=== PATIENT | female | born 1970 | race Caucasian/White ===

== ENCOUNTER 2018-03-11 22:43 | Emergency (ER) | payer SELFPAY ==
[2018-03-11 23:40] LABS: Basophils # (Auto) 0.1 K/mm3 (0.0-0.1); Basophils % (Auto) 0.9 % (0.0-1.8); Hematocrit 37.8 % (30.3-42.9); Hemoglobin 12.9 gm/dl (10.1-14.3); Lymphocytes # (Auto) 3.7 K/mm3 (1.2-5.4); Lymphocytes % (Auto) 41.4 % (13.4-35.0); Mean Corpuscular HGB Conc 34 % (30-34); Mean Corpuscular Hemoglobin 28 pg (28-32); Mean Corpuscular Volume 82 fl (79-97); Monocytes # (Auto) 0.4 K/mm3 (0.0-0.8); Monocytes % (Auto) 4.5 % (0.0-7.3); Platelet Count 312 K/mm3 (140-440); Red Blood Count 4.64 M/mm3 (3.65-5.03); Red Cell Distribution Width 14.1 % (13.2-15.2)
[2018-03-11 23:55] LABS: BUN/Creatinine Ratio 13; Blood Urea Nitrogen 8 mg/dL (7-17); Calcium 9.7 mg/dL (8.4-10.2); Hemolysis Index 9
--- NOTE | 2018-03-12 01:13 | Emergency Department Report ---
HPI - General Chief Complaint: Abdominal Pain Time Seen by Provider: 03/12/18 00:22 - HPI HPI: 47-year-old female presents to the emergency department from home, with her daughter at bedside translating to her mi'kmaq Greek language, with the complaint of a one-month history of abdominal pain and some chest pain with radiation towards the back. The abdominal pain she describes as feeling as if there is a ball growing inside of her that is getting progressively bigger. The chest pain is described as a cramping sensation that sits in there and then radiates towards the back. She's been trying some improvement for her symptoms without any relief. She denies any shortness of breath, fever, vomiting or diaphoresis. She has a past medical history of hypertension and hyperlipidemia. No tobacco, illicit drug use or alcohol abuse. She does not have a primary care physician. No recent travel or sick contacts at home. ED Past Medical Hx - Past Medical History Previous Medical History?: Yes Hx Hypertension: Yes - Surgical History Past Surgical History?: Yes Hx Cholecystectomy: Yes - Social History Smoking Status: Never Smoker Substance Use Type: None - Medications Home Medications: Home Medications Medication Instructions Recorded Confirmed Last Taken Type Acetaminophen/Codeine 1 tab PO Q6H PRN #20 tab 07/30/14 Unknown Rx [Acetaminophen-Codeine #3 TAB] Ibuprofen [Motrin] 600 mg PO Q8H PRN #50 tablet 07/30/14 Unknown Rx Sulfamethoxazole/Trimethoprim 1 each PO BID #20 tablet 07/30/14 Unknown Rx [Bactrim Ds] Lisinopril [Zestril TAB] 10 mg PO QDAY #60 tablet 07/31/14 Unknown Rx ED Review of Systems ROS: Stated complaint: ABDOMINAL PAIN Other details as noted in HPI Comment: All other systems reviewed and negative Constitutional: denies: chills, fever Eyes: denies: eye pain, eye discharge, vision change ENT: denies: ear pain, throat pain Respiratory: denies: cough, shortness of breath, wheezing Cardiovascular: chest pain. denies: palpitations Gastrointestinal: abdominal pain, nausea. denies: vomiting Genitourinary: denies: urgency, dysuria, discharge Musculoskeletal: back pain. denies: arthralgia Skin: denies: rash, lesions Neurological: denies: headache, weakness, paresthesias Physical Exam - Physical Exam Vital Signs: Vital Signs 03/11/18 23:05 Temperature 98 F Pulse Rate 80 Respiratory 18 Rate Blood Pressure 126/74 O2 Sat by Pulse 95 Oximetry Physical Exam: GENERAL: The patient is well-developed well-nourished. HENT: Normocephalic. Atraumatic. Patient has moist mucous membranes. EYES: Extraocular motions are intact. Pupils equal reactive to light bilaterally. NECK: Supple. Trachea is midline. CHEST/LUNGS: Clear to auscultation. There is no respiratory distress noted. HEART/CARDIOVASCULAR: Regular. There is no tachycardia. There is no murmur. ABDOMEN: Abdomen is soft. There is left middle and lower quadrant and midline abdominal tenderness to palpation. No guarding. Patient has normal bowel sounds. SKIN: Skin is warm and dry. NEURO: The patient is awake, alert, and oriented. The patient is cooperative. The patient has no focal neurologic deficits. The patient has normal speech. MUSCULOSKELETAL: There is no tenderness or deformity. There is no limitation range of motion. There is no evidence of acute injury. ED Course Vital Signs 03/11/18 23:05 Temperature 98 F Pulse Rate 80 Respiratory 18 Rate Blood Pressure 126/74 O2 Sat by Pulse 95 Oximetry - Consultations Consultation #1: After getting the CT scan results showing the large left perinephric mass, I contacted our general surgeon director recreation, Dr. Diaz. He felt that with the patient's inability to have close follow-up and with the location and size of the mass, the patient may need transfer to another facility that has urology, surgical oncology and multiple specialities. 03/12/18 05:21 Consultation #2: I spoke with the urologist director recreation at [facility], Dr. Gonzalez, who has graciously accepted the patient for transfer to the ER so that she can be evaluated as the patient may need multiple specialists involved in her care. 03/12/18 05:22 ED Medical Decision Making - Lab Data Result diagrams: 03/11/18 23:25 03/11/18 23:25 - Radiology Data Radiology results: report reviewed CT of the abdomen and pelvis with IV contrast shows a solid mass in the left posterior perinephric space measuring 14 x 10 x 7 centimeters. This causes mass effect on the left kidney displacing anteriorly. This could be a complex exophytic cyst or renal tumor. Retroperitoneal tumor not excluded. Hematoma considered unlikely. Percutaneous biopsy may be helpful. There is no nephrolithiasis or obstructive uropathy. There is no bowel obstruction, colitis or enteritis. The appendix is not discretely identified. There is an IUD in the uterus. There are uterine fibroids. There is an irregular low density mass in the right adnexal region measuring 5.8 cm in diameter which could be an ovarian cyst. Cystic neoplasm not excluded. There is no ascites or free air. There is no abscess or adenopathy. - Medical Decision Making The patient presented with a 3 to four-week history of this abdominal fullness and discomfort. She also had some complaint of some chest discomfort over that same time. Chest x-ray did not show any acute process. EKG is normal without ST elevation AL or ischemia. She has had negative troponins 2 and a negative d -dimer. Regarding the abdominal discomfort, CT of the abdomen and pelvis with IV contrast shows a large left perinephric mass with anterior displacement of the kidney. The patient will need multiple different specialties to evaluate this patient including urology and/or surgical oncology, neither of which we have at this time at [facility]. She was graciously accepted for an ER to ER transfer. All this information including results and plan for transfer were discussed with the patient and her daughter and they understand and agreed with the plan. - Differential Diagnosis malignancy, diverticulitis, small bowel obstruction, nephrolithiasis Critical Care Time: No Critical care attestation.: If time is entered above; I have spent that time in minutes in the direct care of this critically ill patient, excluding procedure time. ED Disposition Clinical Impression: Intraabdominal mass Abdominal pain Qualifiers: Abdominal location: unspecified location Qualified Code(s): R10.9 - Unspecified abdominal pain Disposition: DC/TX-70 ANOTHER TYPE [facility] Is pt being admited?: No Condition: Stable Instructions: Abdominal Pain (ED) Referrals: PRIMARY CARE, [Primary Care Provider] - 3-5 Days Time of Disposition: 05:33
[2018-03-12 01:31] LABS: Alanine Aminotransferase 19 units/L (7-56); Bilirubin,Direct < 0.2 mg/dL (0-0.2); Lipase 50 units/L (13-60)
[2018-03-12 07:39] VITALS: BP 146/84
--- NOTE | 2018-03-12 09:00 | Cat Scan Report ---
FINAL REPORT PROCEDURE: CT ABDOMEN PELVIS W CON TECHNIQUE: Computerized axial tomography of the abdomen and pelvis was performed after the IV injection of iodinated nonionic contrast. HISTORY: Abd pain COMPARISON: No prior studies are available for comparison. FINDINGS: Visualized lower thorax: No significant abnormality. Liver: Normal size and attenuation. Spleen: Normal size and attenuation. Gallbladder and biliary system: Normal. Pancreas: Normal. Adrenals: Normal. Kidneys: There is a solid mass in the left posterior perinephric space measuring 14 x 10 x 7 centimeters. This causes mass effect on the left kidney displacing it anteriorly. This could be a complex exophytic cyst or renal tumor. Retroperitoneal tumor not excluded. Hematoma considered unlikely. Percutaneous biopsy may be helpful. There is no nephrolithiasis or obstructive uropathy.. GI tract: There is no bowel obstruction, colitis or enteritis. The appendix is not discretely identified.. Lymph nodes and mesentery: Normal. Vasculature: Normal. Bladder: Normal. Reproductive organs: There is an IUD in the uterus. There are uterine fibroids. There is an irregular low-density mass in the right adnexal region measuring 5.8 centimeters in diameter which could be an ovarian cyst. Cystic neoplasm not excluded.. Peritoneum: There is no ascites or free air. There is no abscess or adenopathy.. Musculoskeletal structures: No significant abnormality. Other: None. IMPRESSION: There is a solid mass in the left posterior perinephric space measuring 14 x 10 x 7 centimeters. This causes mass effect on the left kidney displacing it anteriorly. This could be a complex exophytic cyst or renal tumor. Retroperitoneal tumor not excluded. Hematoma considered unlikely. Percutaneous biopsy may be helpful. There is no nephrolithiasis or obstructive uropathy.. There is no bowel obstruction, colitis or enteritis. The appendix is not discretely identified.. There is an IUD in the uterus. There are uterine fibroids. There is an irregular low-density mass in the right adnexal region measuring 5.8 centimeters in diameter which could be an ovarian cyst. Cystic neoplasm not excluded.. There is no ascites or free air. There is no abscess or adenopathy..
--- NOTE | 2018-03-12 09:00 | XRay Report ---
FINAL REPORT PROCEDURE: XR ABD SERIES W CXR 1V TECHNIQUE: Abdominal series complete, including supine and upright AP views of the abdomen and frontal chest. HISTORY: Chest pain. Abdominal pain. COMPARISON: No prior studies are available for comparison. FINDINGS: Heart: Normal. Mediastinum/Vessels: Normal. Lungs/Pleural space: Low lung volumes. Perihilar and bibasilar opacities. Bowel gas pattern: Nonobstructive. Moderate stool in the proximal colon. Masses or calcifications: None. Bony structures: Small osteophytes of the visualized spine. Other: No free intraperitoneal air. IUD. Cholecystectomy clips. IMPRESSION: Low lung volumes. Perihilar and bibasilar opacities likely bronchovascular crowding/atelectasis. Nonobstructive bowel gas pattern. Moderate stool. Consider constipation.
== END 2018-03-12 07:48 | disposition other institution (70) ==
LOC: ED 22:43
DX: R19.00 Intra-abdominal and pelvic swelling, mass and lump, unspecified site (principal); I10 Essential (primary) hypertension
CPT/HCPCS: 36415; 74022; 74177; 80048; 80074; 83690; 84484; 85025; 85379; 93005; 93010; 99285; Q9967